=== PATIENT | male | born 1960 | race Caucasian/White ===

== ENCOUNTER 2022-03-12 11:30 | Inpatient (IN) ==
[2022-03-12] MEDS ORDERED: IOPAMIDOL 100 ML BOTTLE IV ONE (11:31)
--- NOTE | 2022-03-12 11:49 | Emergency Department Note ---
HPI General Chief complaint: Stroke Symptoms Stated complaint: stroke symptoms Time Seen by Provider: 03/12/22 11:34 Source: patient Mode of arrival: ambulatory Limitations: no limitations History of Present Illness HPI Narrative: Narrative: Presents emergency department for strokelike symptoms. He was sent over from surgery. He had surgery on his right shoulder today. Was found to be unable to move his left arm postoperatively. Last known well was 730 this morning. He is reportedly been agitated after surgery. No other complaints. Patient was given aspirin prior to arrival in the emergency department Related Data Previous Rx's Medication Instructions Recorded albuterol sulfate 90 mcg/actuation 1 inh inhalation Q4-6H PRN 08/16/21 breath activated powder inhaler shortness of breath #1 ea methylphenidate HCl 27 mg 27 mg PO QAM #30 tabs 10/31/21 tablet,extended release 24 hr tamsulosin 0.4 mg capsule 0.4 mg PO QHS #30 caps 11/22/21 hydrocodone 10 mg-acetaminophen 1 - 2 tab PO Q4HP PRN Per Pain 03/12/22 325 mg tablet Protocol #60 tabs Allergies Allergy/AdvReac Type Severity Reaction Status Date / Time No Known Drug Allergies Allergy Verified 03/12/22 06:11 Review of Systems ROS ROS Narrative: Narrative: As above, otherwise limited due to acuity. [facility] Narrative Patient History Narrative: Narrative: Medical/Surgical/Family History All Active Problems (Updated 03/12/22 @ 15:54 by Gunnar Cary MD) Fracture of clavicle (Chronic) Fracture scapula-closed (Chronic) Fracture, rib (Chronic) Superficial thrombophlebitis (Chronic) Anxiety (Chronic) Chronic stasis dermatitis of left lower extremity (Chronic) On intermediate manager drug therapy (Chronic) Urinary incontinence (Chronic) Stimulant use disorder (Chronic) Hypertension (Chronic) Attention deficit hyperactivity disorder (ADHD) (Chronic) Tobacco use disorder, continuous (Chronic) Major depressive disorder, 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) Urinary incontinence (Chronic) HTN (hypertension) (Chronic) Hematuria (Chronic) Elevated PSA (Chronic) Fecal incontinence (Chronic) Chronic hepatitis C (Chronic) Mental disorder (Chronic) Benign prostatic hyperplasia (Chronic) Shoulder joint pain (Chronic) Lumbar disc prolapse with compression radiculopathy (Chronic) Chronic low back pain (Chronic) Disorder of rotator cuff (Chronic) Acquired trigger finger (Chronic) Memory impairment (Chronic) No-show for appointment (Chronic) Generalized anxiety disorder (Chronic) Cough (Chronic) SOB (shortness of breath) (Chronic) Depressive disorder (Chronic) Other low back pain (Chronic) BPH loc w urin obs/LUTS (Acute) Erectile dysfunction (Acute) Low libido (Acute) Elevated PSA, less than 10 ng/ml (Acute) Facial rash (Acute) Cellulitis (Acute) Wheezing (Acute) Sprain of foot, left (Acute) Left shoulder strain (Acute) Acute CVA (cerebrovascular accident) (Acute) Medical History Acquired trigger finger Anxiety Attention deficit hyperactivity disorder (ADHD) Benign prostatic hyperplasia Chronic hepatitis C Onset 11/19/2013 Chronic low back pain Chronic stasis dermatitis of left lower extremity Depressive disorder Disorder of rotator cuff Elevated PSA Fecal incontinence Fracture of clavicle Fracture scapula-closed Fracture, rib Hematuria HTN (hypertension) Hypertension Lumbar disc prolapse with compression radiculopathy Major depressive disorder, recurrent severe without psychotic features Memory impairment Mental disorder On intermediate manager drug therapy Other low back pain Shoulder joint pain Stimulant use disorder Superficial thrombophlebitis Tobacco use disorder, continuous Urinary incontinence Urinary incontinence Surgical History History of open reduction and internal fixation (ORIF) procedure (10/09/16) Right shoulder History of orthopedic surgery (03/20/17) Hardware removed, right shoulder deep removing the hook, plate and 5 screws History of surgery left shoulder Family History Sister ADHD (attention deficit hyperactivity disorder) Depressive disorder Father Diabetes mellitus Brother Cancer Other Hypertension Social History Smoking Status: Current every day smoker Alcohol Intake Frequency: does not drink Substance Use: does not use Exam Narrative Narrative: Narrative: Blood pressure 155/91, pulse 104, respirations 18, temperature 97.5, O2 sat 92% on room air. General Limitations: no limitations Head Head: Present atraumatic, normocephalic and normal inspection Eye Eye: Present normal appearance, PERRL and EOMI ENT ENT: Present normal exam Neck Neck: Present normal inspection and full ROM Respiratory Respiratory: Absent respiratory distress Extremities Extremities: Present other (Right shoulder with surgical dressing in place) Neurological Neurological: Present alert, CN II-XII intact and motor sensory deficit (Patient has weakness to the left upper extremity, difficulty following commands.) Psychiatric Psychiatric: Present agitated and other (Agitated) Skin Skin: Present warm (WNL) and dry Course Vital Signs Vital signs: Vital Signs Temperature 97.5 F 03/12/22 11:36 Pulse Rate 104 H 03/12/22 11:36 Respiratory Rate 18 03/12/22 11:36 Blood Pressure 155/91 03/12/22 11:36 Pulse Oximetry (%) 92 03/12/22 11:36 Oxygen Delivery Method 03/12/22 11:36 Temperature 97.5 F 03/12/22 11:36 Pulse Rate 89 03/12/22 15:32 Respiratory Rate 12 03/12/22 15:32 Blood Pressure 130/88 03/12/22 15:32 Pulse Oximetry (%) 94 03/12/22 15:32 Oxygen Delivery Method 03/12/22 12:45 Oxygen Flow Rate (L/min) 2 03/12/22 12:45 MDM MDM Narrative Medical decision making narrative: Narrative: EKG showed sinus rhythm, no acute ischemic changes, intervals otherwise normal. CT brain as read by radiology showed no acute pathology. Spoke with Dr. Hernandez on-call telestroke neurologist. Case reviewed in detail over the phone. Neurologist recommend the patient be admitted for observation and standard stroke work-up. Spoke with on-call hospitalist. Case reviewed in detail over phone. Hospitalist requested MRI results of this reviewed as per the electronic medical record. Spoke with on-call hospitalist. Hospitalist agreed with admission. Discussed findings with patient and the family. Their questions were answered. They are agreeable to plan. Lab Data Result diagrams: 03/12/22 12:11 Labs: Lab Results 03/12/22 03/12/22 03/12/22 Range/Units 12:11 12:11 12:11 WBC 6.9 (4.5-11.0) K/mcL RBC 4.69 (4.63-6.08) M/mcL Hgb 14.3 (13.7-17.5) g/dL Hct 42.5 (40.1-51.0) % POC Hct (41-55) MCV 90.6 (80.0-100.0) fL MCH 30.5 (26.0-34.0) pg MCHC 33.6 (31.0-36.0) g/dL RDW 13.2 (11.5-14.5) % Plt Count 169 (140-440) K/mcL MPV 10.3 (8.8-12.5) fL Immature Gran % (Auto) 0.4 (0.0-0.5) % Neut % (Auto) 87.1 H (38.0-78.0) % Lymph % (Auto) 10.2 L (15.5-49.0) % [place] % (Auto) 1.9 (1.0-12.0) % Eos % (Auto) 0.3 (0.0-7.0) % Baso % (Auto) 0.1 (0.0-2.0) % Lymph # (Auto) 0.70 L (1.50-4.80) K/mcL [place] # (Auto) 0.13 (0.10-0.90) K/mcL Eos # (Auto) 0.02 (0.00-0.70) K/mcL Baso # (Auto) 0.01 (0.00-0.30) K/mcL Immature Gran # 0.03 (0.00-0.05) K/mcl Absolute Neutrophils 5.99 (1.80-8.00) K/mcL PT 13.3 (11.9-14.5) sec INR 1.0 (0.9-1.1) APTT 32.6 (20.0-37.0) sec POC Sodium (133-145) POC Potassium (3.3-5.1) POC Chloride (96-108) POC Total CO2 (22-30) POC BUN (6-20) POC Creatinine (0.6-1.2) POC Glucose (70-105) POC WB Ioniz Calcium (1.16-1.32) Ethyl Alcohol mg/dL < 10.0 mg/dL Ethyl Alcohol g/dL < 0.010 (<0.010) gm/dL 03/12/22 Range/Units 12:15 WBC (4.5-11.0) K/mcL RBC (4.63-6.08) M/mcL Hgb (13.7-17.5) g/dL Hct (40.1-51.0) % POC Hct 42.0 (41-55) MCV (80.0-100.0) fL MCH (26.0-34.0) pg MCHC (31.0-36.0) g/dL RDW (11.5-14.5) % Plt Count (140-440) K/mcL MPV (8.8-12.5) fL Immature Gran % (Auto) (0.0-0.5) % Neut % (Auto) (38.0-78.0) % Lymph % (Auto) (15.5-49.0) % [place] % (Auto) (1.0-12.0) % Eos % (Auto) (0.0-7.0) % Baso % (Auto) (0.0-2.0) % Lymph # (Auto) (1.50-4.80) K/mcL [place] # (Auto) (0.10-0.90) K/mcL Eos # (Auto) (0.00-0.70) K/mcL Baso # (Auto) (0.00-0.30) K/mcL Immature Gran # (0.00-0.05) K/mcl Absolute Neutrophils (1.80-8.00) K/mcL PT (11.9-14.5) sec INR (0.9-1.1) APTT (20.0-37.0) sec POC Sodium 141 (133-145) POC Potassium 3.5 (3.3-5.1) POC Chloride 102 (96-108) POC Total CO2 24.0 (22-30) POC BUN 16 (6-20) POC Creatinine 1.2 (0.6-1.2) POC Glucose 142 H (70-105) POC WB Ioniz Calcium 1.12 L (1.16-1.32) Ethyl Alcohol mg/dL mg/dL Ethyl Alcohol g/dL (<0.010) gm/dL Discharge Plan Patient/Caregiver Discharge Instructions Pt seen by PROSTHODONTIST/OWNER/PA only: No Clinical Impression: Acute CVA (cerebrovascular accident) Patient Disposition: Xfer As Inpt ([facility]) Follow up with: Jewell Damon ARNP [Primary Care Provider] - Prescriptions: No Action methylphenidate HCl 27 mg tablet extended release 24hr 27 mg PO QAM Qty: 30 0RF albuterol sulfate 90 mcg/actuation aerosol powdr breath activated 1 inh inhalation Q4-6H PRN (Reason: shortness of breath) Qty: 1 0RF hydrocodone-acetaminophen 10-325 mg Tablet 1 - 2 tab PO Q4HP PRN (Reason: Per Pain Protocol) Qty: 60 0RF tamsulosin 0.4 mg capsule 0.4 mg PO QHS Qty: 30 11RF
--- NOTE | 2022-03-12 12:04 | Cat Scan Report ---
History: Acute stroke symptoms TECHNIQUE: The brain was imaged without contrast in axial plane at 2.5 mm intervals. The radiation exposure was limited using dose reduction technology. FINDINGS: There is a small multicentric infarct with encephalomalacia in the right ernandez radiata, in the posterior right frontal lobe. It measures approximately 5 x 8 mm in size. It has no mass effect. No acute infarct is detected. There is no intracranial hemorrhage or cerebral edema. Mild atrophy is present. The ventricles are normal in size. There is no abnormal extra-axial fluid collection. Calvarium is asymmetrically developed. This is an anatomic variant. No skull lesion is present. The visualized sinuses are clear. IMPRESSION: Small old infarct with encephalomalacia in the right ernandez radiata Dr. Cary was called with the report Interpreted and Authenticated by: James Clemens 03/12/22
[2022-03-12 12:17] LABS: POC Calcium, Ionized 1.12 (1.16-1.32); POC Creatinine 1.2 (0.6-1.2); POC Potassium 3.5 (3.3-5.1)
--- NOTE | 2022-03-12 12:42 | Cat Scan Report ---
History: New stroke symptoms TECHNIQUE: Following injection of intravenous nonionic contrast the patient was scanned during the arterial phase from the ascending aorta to the top of the head. Sagittal, coronal and curved linear reformatted images were created. The radiation exposure was limited using dose reduction technology. FINDINGS: NECK: There are patchy alveolar infiltrates located posteriorly in the upper lobes, right worse left. This could be due to atelectasis, inflammation or aspiration. There is some air in the soft tissues around the right shoulder due to the recent shoulder surgery. The aortic arch and great vessels arising from the aorta are normal in caliber. There is a small amount of plaque along the midportion of the aorta. There is no aneurysm or dissection. Few calcified plaques are seen in the coronary arteries. The innominate and common carotid arteries are normal. Small amount of mixed plaque is present in the proximal internal carotids bilaterally. This causing approximately 33% stenosis on the left and 25% stenosis of the right. Mid and distal portions of both internal carotids are normal and there is no dissection or thrombosis. The vertebral arteries are normal and nearly symmetric. Incidentally noted is moderate disc space narrowing at C5-6 and milder narrowing at C4-5. Brain: Intracranial portions of both internal carotids and vertebral arteries are normal in caliber. [place] of [place] is normal. There is no large vessel occlusion. No aneurysm is present. 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 This is the same location where a suspected old infarct is seen on the preceding unenhanced head CT. There is no associated hemorrhage. This anomalous vein drains into the right internal cerebral vein and vein of Ricardo. No other vascular anomaly is present. IMPRESSION: Nonhemodynamically significant stenoses in the proximal internal carotids bilaterally. 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 Cayr was called with the report Interpreted and Authenticated by: James Clemens 03/12/22
[2022-03-12 13:11] LABS: Basophils # (Auto) 0.01 K/mcL (0.00-0.30); Basophils % (Auto) 0.1 % (0.0-2.0); Eosinophils # (Auto) 0.02 K/mcL (0.00-0.70); Eosinophils % (Auto) 0.3 % (0.0-7.0); Hematocrit 42.5 % (40.1-51.0); Hemoglobin 14.3 g/dL (13.7-17.5); Lymphocytes % (Auto) 10.2 % (15.5-49.0); Mean Cell Volume 90.6 fL (80.0-100.0); Mean Corpuscular HGB Conc 33.6 g/dL (31.0-36.0); Mean Platelet Volume 10.3 fL (8.8-12.5); Monocytes # (Auto) 0.13 K/mcL (0.10-0.90); Monocytes % (Auto) 1.9 % (1.0-12.0); Neutrophils % (Auto) 87.1 % (38.0-78.0); Platelet Count 169 K/mcL (140-440); RBC 4.69 M/mcL (4.63-6.08); Red Cell Distribution Width 13.2 % (11.5-14.5); WBC 6.9 K/mcL (4.5-11.0)
[2022-03-12 13:16] LABS: Alcohol, Blood < 10.0 mg/dL; Alcohol,Blood < 0.010 gm/dL (<0.010); Partial Thromboplastin Time 32.6 sec (20.0-37.0); Prothrombin Time 13.3 sec (11.9-14.5)
--- NOTE | 2022-03-12 15:27 | Magnetic Resonance Report ---
History: Stroke symptoms with left upper extremity weakness TECHNIQUE: Multiplanar imaging was performed using stroke protocol. FINDINGS: In the right side ernandez radiata lateral to the mid body of the right lateral ventricle and adjacent to the body right caudate nucleus there is a white matter lesion which measures approximately 1.2 x 1.4 cm. Centrally there are two round components of the lesion susceptibility artifact on the gradient pulse sequence of low signal on T1. These may be foci of hemosiderin suggesting staining. Along the periphery there is restricted diffusion. The aberrant vein is seen in this same location on the preceding head CT with contrast is not identified on this nonenhanced MRI. No other infarct, hemorrhage or mass are present. There is mild age-related changes with mild atrophy and few small subtle high signal lesions in the periphery of the centrum semiovale in the frontal and parietal lobes. IMPRESSION: Small infarct posteriorly in the right frontal lobe adjacent to the right lateral ventricle. This is associated with a small venous malformation and small foci of hemosiderin staining. Dr. Cary was called with the report Interpreted and Authenticated by: James Clemens 03/12/22
[2022-03-12 15:59] LABS: Amphetamine Screen,Urine Suspect positive; Barbiturate Screen,Urine None detected; Benzodiazepines Screen,Urine None detected; Cannabinoid Screen,Urine None detected; Cocaine Screen,Urine None detected; Opiate Screen,Urine None detected; Oxycodone, Urine Screen None detected; Phencyclidine Screen,Urine None detected
[2022-03-12 16:43] LABS: Appearance,Urine CLEAR (Clear); Bilirubin,Urine NEGATIVE (Negative); Color,Urine LT. YELLOW; Culture Indicated,Urine No; Glucose,Urine (UA) NEGATIVE (Negative); Ketones,Urine NEGATIVE (Negative); Leukocyte Esterase,Urine NEGATIVE /uL (Negative); Mucus,Urine FEW /hpf; Nitrate,Urine NEGATIVE (Negative); Protein,Urine NEGATIVE (Negative); Urine Blood NEGATIVE ery/mcL (Negative); Urine RBC < 1 /hpf (0-3); Urine Squamous Epithelial Cell 0 /hpf (0-4); Urine WBC 1 /hpf (0-4); Urobilinogen,Urine Normal
--- NOTE | 2022-03-12 17:16 | Internal Med History&Physical ---
HPI History of Present Illness Patient information: Note initiated : 03/12/22 at 5:12 pm Service Date, if different from initiated Date: [] Patient: Jake Tirado 61 y/o M admitted on for stroke symptoms. Chief Complaint: [] History of present illness: Mr. 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) Urinary incontinence (Chronic) HTN (hypertension) (Chronic) Hematuria (Chronic) Elevated PSA (Chronic) Fecal incontinence (Chronic) Chronic hepatitis C (Chronic) Mental disorder (Chronic) Benign prostatic hyperplasia (Chronic) Shoulder joint pain (Chronic) Lumbar disc prolapse with compression radiculopathy (Chronic) Chronic low back pain (Chronic) Disorder of rotator cuff (Chronic) Acquired trigger finger (Chronic) Memory impairment (Chronic) No-show for appointment (Chronic) Generalized anxiety disorder (Chronic) Cough (Chronic) SOB (shortness of breath) (Chronic) Depressive disorder (Chronic) Other low back pain (Chronic) BPH loc w urin obs/LUTS (Acute) Erectile dysfunction (Acute) Low libido (Acute) Elevated PSA, less than 10 ng/ml (Acute) Facial rash (Acute) Cellulitis (Acute) Wheezing (Acute) Sprain of foot, left (Acute) Left shoulder strain (Acute) Acute CVA (cerebrovascular accident) (Acute) Medical History Acquired trigger finger Anxiety Attention deficit hyperactivity disorder (ADHD) Benign prostatic hyperplasia Chronic hepatitis C Onset 11/19/2013 Chronic low back pain Chronic stasis dermatitis of left lower extremity Depressive disorder Disorder of rotator cuff Elevated PSA Fecal incontinence Fracture of clavicle Fracture scapula-closed Fracture, rib Hematuria HTN (hypertension) Hypertension Lumbar disc prolapse with compression radiculopathy Major depressive disorder, recurrent severe without psychotic features Memory impairment Mental disorder 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 Other low back pain Shoulder joint pain Stimulant use disorder Superficial thrombophlebitis Tobacco use disorder, continuous Urinary incontinence Urinary incontinence Surgical History History of open reduction and internal fixation (ORIF) procedure (10/09/16) Right shoulder History of orthopedic surgery (03/20/17) Hardware removed, right shoulder deep removing the hook, plate and 5 screws History of surgery left shoulder Family History Sister ADHD (attention deficit hyperactivity disorder) Depressive disorder Father Diabetes mellitus Brother Cancer Other Hypertension Social History adopted: No caregiver/support person: No foster care: No household members: alone housing: other details: Trailer lives independently: Yes marital status: single education level: college occupational status: unemployed and student sexually active: Yes smoking status: Current every day smoker tobacco type: cigarettes pack-years: 40 alcohol intake frequency: does not drink substance use type: does not use seatbelt use: always firearms in home: No MEDS/ALLERGIES Home Medications and Allergies Home Medications Medication Instructions Recorded Confirmed Type albuterol sulfate 90 mcg/actuation 1 inh inhalation Q4-6H PRN 08/16/21 03/12/22 Rx breath activated powder inhaler shortness of breath #1 ea methylphenidate HCl 27 mg 27 mg PO QAM #30 tabs 10/31/21 03/12/22 Rx tablet,extended release 24 hr tamsulosin 0.4 mg capsule 0.4 mg PO QHS #30 caps 11/22/21 03/12/22 Rx hydrocodone 10 mg-acetaminophen 1 - 2 tab PO Q4HP PRN Per Pain 03/12/22 03/12/22 Rx 325 mg tablet Protocol #60 tabs Allergies Allergy/AdvReac Type Severity Reaction Status Date / Time No Known Drug Allergies Allergy Verified 03/12/22 06:11 EXAM Constitutional Vitals: Temp Pulse Resp BP Pulse Ox O2 Del Method O2 Flow Rate 97.5 F 95 H 23 H 155/90 92 2 03/12/22 11:36 03/12/22 16:53 03/12/22 16:53 03/12/22 16:46 03/12/22 16:53 03/12/22 12:45 03/12/22 12:45 DATA Data Completed and Pending Labs: Labs from last 24 hours 03/12/22 03/12/22 03/12/22 14:41 14:41 12:15 WBC RBC Hgb Hct POC Hct 42.0 MCV MCH MCHC RDW Plt Count MPV Immature Gran % (Auto) Neut % (Auto) Lymph % (Auto) [place] % (Auto) Eos % (Auto) Baso % (Auto) Lymph # (Auto) [place] # (Auto) Eos # (Auto) Baso # (Auto) Immature Gran # Absolute Neutrophils PT INR APTT POC Sodium 141 POC Potassium 3.5 POC Chloride 102 POC Total CO2 24.0 POC BUN 16 POC Creatinine 1.2 POC Glucose 142 H POC WB Ioniz Calcium 1.12 L Urine Color Lt. yellow Urine Appearance Clear Urine pH 7.0 Ur Specific [place] 1.010 Urine Protein Negative Urine Glucose (UA) Negative Urine Ketones Negative Urine Occult Blood Negative Urine Nitrate Negative Urine Bilirubin Negative Urine Urobilinogen Normal Ur Leukocyte Esterase Negative Urine RBC < 1 Urine WBC 1 Ur Squamous Epith Cells 0 Urine Bacteria None Urine Mucus Few A Ur Culture Indicated? No Urine Opiates Screen None detected Ur Opiates Confirm TNP Ur Oxycodone Screen None detected U Oxycod/Oxymor Confirm TNP Urine Methadone Screen None detected Ur Methadone Confirm TNP Ur Barbiturates Screen None detected Ur Barbiturate Confirm TNP Ur Phencyclidine Scrn None detected Urine PCP Confirm TNP Ur Amphetamines Screen Suspect positive A U Amphetamines Confirm Pending U Benzodiazepines Scrn None detected Ur Benzodiazepine, Qnt TNP Urine Cocaine Screen None detected Urine Cocaine Confirm TNP U Cannabinoids Confirm TNP U Marijuana (THC) Screen None detected Ethyl Alcohol mg/dL Ethyl Alcohol g/dL 03/12/22 03/12/22 03/12/22 12:11 12:11 12:11 WBC 6.9 RBC 4.69 Hgb 14.3 Hct 42.5 POC Hct MCV 90.6 MCH 30.5 MCHC 33.6 RDW 13.2 Plt Count 169 MPV 10.3 Immature Gran % (Auto) 0.4 Neut % (Auto) 87.1 H Lymph % (Auto) 10.2 L [place] % (Auto) 1.9 Eos % (Auto) 0.3 Baso % (Auto) 0.1 Lymph # (Auto) 0.70 L [place] # (Auto) 0.13 Eos # (Auto) 0.02 Baso # (Auto) 0.01 Immature Gran # 0.03 Absolute Neutrophils 5.99 PT 13.3 INR 1.0 APTT 32.6 POC Sodium POC Potassium POC Chloride POC Total CO2 POC BUN POC Creatinine POC Glucose POC WB Ioniz Calcium Urine Color Urine Appearance Urine pH Ur Specific [place] Urine Protein Urine Glucose (UA) Urine Ketones Urine Occult Blood Urine Nitrate Urine Bilirubin Urine Urobilinogen Ur Leukocyte Esterase Urine RBC Urine WBC Ur Squamous Epith Cells Urine Bacteria Urine Mucus Ur Culture Indicated? Urine Opiates Screen Ur Opiates Confirm Ur Oxycodone Screen U Oxycod/Oxymor Confirm Urine Methadone Screen Ur Methadone Confirm Ur Barbiturates Screen Ur Barbiturate Confirm Ur Phencyclidine Scrn Urine PCP Confirm Ur Amphetamines Screen U Amphetamines Confirm U Benzodiazepines Scrn Ur Benzodiazepine, Qnt Urine Cocaine Screen Urine Cocaine Confirm U Cannabinoids Confirm U Marijuana (THC) Screen Ethyl Alcohol mg/dL < 10.0 Ethyl Alcohol g/dL < 0.010 A/P Narrative A/P Narrative: Assessment: 61-year-old male with history of hypertension, prior stroke, attention deficit disorder, right shoulder SLAP lesion with impingement, acromial clavicular joint arthrosis and subluxation, biceps tendinitis and rotator cuff tear who underwent corrective shoulder surgery on 03/12/2022 that was unfortunately complicated by an acute intraoperative right posterior frontal lobe ischemic stroke. The cause of the stroke is unknown. #Acute right posterior frontal lobe ischemic stroke #Left upper extremity weakness #Bilateral lower extremity edema #Essential hypertension, untreated #Attention deficit disorder on methylphenidate Plan -Admit to PCU for post stroke work-up and close monitoring. -Will discuss with telestroke neurology regarding timing for antiplatelet therapy given the venous malformation and small foci of hemosiderin staining seen in the stroke area. -Start atorvastatin 40 mg daily. -Transthoracic echocardiogram. -campus monitor. -Check lipid panel and hemoglobin A1c. 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 -Permissive blood pressure for now. -Stat noncontrast CT head for any neuro changes. -Lasix 40 mg IV x2, reassess tomorrow. -Follow renal function and electrolytes. -Home medication reconciliation, continue important meds. -Dysphagia diet until seen by speech therapy. -PT, OT, speech therapy. -DVT prophylaxis: Lovenox -Disposition: Will depend on therapy recommendations, possibly acute inpatient rehab for post stroke therapies. Time Spent With Patient Time: Total time spent is greater than 50% in coordination of care (as documented) at patient's floor/unit and/or counseling patient: QUALITY Stroke Symptom Onset Unknown: No
[2022-03-12] MEDS ORDERED: ONDANSETRON 4 MG/2 ML VIAL IV PRN (18:03)
[2022-03-12] MEDS ORDERED: SENNOSIDES 1 TABLET PO PRN (18:03)
[2022-03-12] MEDS ORDERED: LACTULOSE 20 GM/30 ML ORAL.SOL PO PRN (18:03)
[2022-03-12] MEDS: HYDROmorphone 0.5 MG/0.5 ML SYRINGE IV PRN (18:49)
[2022-03-12] MEDS: FUROSEMIDE 40 MG/4 ML VIAL IV SCH (18:49)
--- NOTE | 2022-03-12 20:25 | EKG ---
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
[2022-03-12] MEDS ORDERED: NICOTINE POLACRILEX 2 MG GUM CHEW/PARK PRN (20:31)
[2022-03-12] MEDS: ATORVASTATIN 40 MG TABLET PO SCH (20:45)
[2022-03-12] MEDS: TAMSULOSIN 0.4 MG CAPSULE PO SCH (21:07)
[2022-03-12] MEDS: HYDROcodone/APAP 5/325MG TABLET PO PRN (21:07)
[2022-03-12] MEDS: DOCUSATE SODIUM 100 MG CAPSULE PO SCH (21:09)
[2022-03-12] MEDS: NICOTINE 14 MG PATCH TOPICAL SCH (21:09)
[2022-03-12] MEDS: DIAZEPAM 2 MG TABLET PO PRN (21:13)
[2022-03-12] MEDS: 0.9 % SODIUM CHLORIDE 10 ML SYRINGE IV SCH (22:02)
[2022-03-13] MEDS: HYDROmorphone 0.5 MG/0.5 ML SYRINGE IV PRN (05:55)
[2022-03-13] MEDS: 0.9 % SODIUM CHLORIDE 10 ML SYRINGE IV SCH ×4 (05:56→20:03)
[2022-03-13 07:09] LABS: Estimated Average Glucose(eAG) 126 mg/dL
[2022-03-13 07:38] LABS: ALT/SGPT 27 U/L (<40); AST/SGOT 29 U/L (<40); Albumin 3.6 gm/dL (3.2-5.2); Albumin/Globulin Ratio 1.3 (1.0-2.3); Alkaline Phosphatase 74 U/L (39-117); Bilirubin,Direct < 0.2 mg/dL (0-0.3); Bilirubin,Total 0.2 mg/dL (0.1-1.0); Blood Urea Nitrogen 20 mg/dL (6-20); Calcium 8.8 mg/dL (8.6-10.4); Carbon Dioxide 24 mmol/L (22-30); Chloride 103 mmol/L (96-108); Globulin 2.8 gm/dL (2.2-3.7); Glomerular Filtration Rate 73; Glucose 134 mg/dL (70-105); HDL Cholesterol 33 mg/dL (>40); LDL Cholesterol,Calculated 98 mg/dL (<100); Lactate Dehydrogenase 193 U/L (135-225); Non-HDL Cholesterol 112 mg/dL (<130); Phosphorous 3.9 mg/dL (2.5-4.5); Triglycerides 71 mg/dL (<150); Uric Acid 7.3 mg/dL (2.5-8.0)
[2022-03-13] MEDS: FUROSEMIDE 40 MG/4 ML VIAL IV SCH (08:25)
[2022-03-13] MEDS: DOCUSATE SODIUM 100 MG CAPSULE PO SCH ×2 (08:57→20:03)
[2022-03-13] MEDS: HYDROcodone/APAP 5/325MG TABLET PO PRN ×3 (08:59→19:32)
[2022-03-13] MEDS: ASPIRIN 81 MG TAB.CHEW CHEWED SCH (08:59)
[2022-03-13] MEDS: ENOXAPARIN 40 MG/0.4 ML SYRINGE SQ SCH (08:59)
[2022-03-13] MEDS: ATORVASTATIN 40 MG TABLET PO SCH (09:00)
--- NOTE | 2022-03-13 10:08 | Cat Scan Report ---
History: Follow-up right hemispheric stroke TECHNIQUE: The brain was imaged without contrast in axial plane at 2.5 mm intervals. Sagittal and coronal reformats were created. The radiation exposure was limited using dose reduction technology. FINDINGS: There is a stable 9 x 12 mm low-attenuation lesion in the right ernandez radiata, located posteriorly in the right frontal lobe. This corresponds with the infarct seen on yesterday's brain MRI. It has not enlarged and there is no associated hemorrhage. No new infarct has developed since the prior exam. There is stable mild age-related degenerative changes with mild cerebral atrophy. No abnormal extra-axial fluid collection is present. The ventricles are normal in size. IMPRESSION: Stable small infarct in the right ernandez radiata Interpreted and Authenticated by: James Clemens 03/13/22
[2022-03-13] MEDS: NICOTINE 14 MG PATCH TOPICAL SCH (11:21)
[2022-03-13] MEDS: DIAZEPAM 2 MG TABLET PO PRN (12:28)
--- NOTE | 2022-03-13 13:10 | Internal Med Progress Note ---
SUBJECTIVE Subjective Patient information: Note initiated : 03/13/22 at 1:06 pm Service Date, if different from initiated Date: [] Patient: Jake Tirado 61 y/o M admitted on 03/12/22 for stroke symptoms- Ischemic Stroke. Chief Complaint: [] Interval history: Jake Tirado is a 61-year-old male with history of hypertension, attention deficit disorder, right shoulder SLAP lesion with impingement, acromial clavicular joint arthrosis and subluxation, biceps tendinitis and rotator cuff tear who underwent corrective shoulder surgery on 03/12/2022 that was unfortunately complicated by an acute intraoperative right posterior frontal lobe ischemic stroke. MRI brain showed a small infarct posteriorly in the right frontal lobe adjacent to the right lateral ventricle. CTA head and neck showed nonhemodynamically significant stenosis in the proximal internal carotid arteries bilaterally, normal intracranial arterial circulation, a venous malformation adjacent to the body of the right caudate nucleus and right ernandez radiata. The patient was started on aspirin, stroke neurology recommended repeating a noncontrast CT head the next day given a small amount of possible hemosiderin staining on the MRI brain and venous malformation. 03/13 No significant events overnight, NIH stroke scale score 7. Repeat noncontrast CT head showed a stable small infarct in the right ernandez radiata, no associated hemorrhage. Hemoglobin A1c was 6.0, LDL was 98, transthoracic echocardiogram did not show a source of cardioembolic stroke. 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 We will continue aspirin and statin, per stroke neurology, the patient is not a candidate for the addition of Plavix given the NIH score of 7. Patient continues to have significant left upper extremity weakness and possible mild neglect. PT, OT and speech therapy will evaluate the patient today. Anticipate the patient would benefit from high intensity rehab for post stroke cares. Physical exam Head: Atraumatic, normal inspection. Eyes: normal appearance, no scleral icterus. Neck: full ROM Respiratory: no respiratory distress. Cardiovascular: normal rate and rhythm, S1, S2. GI/Abdominal: soft, nontender, no guarding. Extremities: full range of motion, nontender. Neurological: Mild right facial droop, left upper extremity weakness, intact sensation. Psychiatric: normal mood. Skin: warm, normal color Constitutional Vitals: Vital Signs Temp Pulse Resp BP Pulse Ox O2 Del Method O2 Flow Rate 98.8 F 85 16 170/105 94 0 03/13/22 12:01 03/13/22 12:01 03/13/22 12:01 03/13/22 12:01 03/13/22 12:01 03/13/22 12:01 03/13/22 12:01 Period Temp Pulse Resp BP Sys/Viera Pulse Ox O2 Del Method O2 Flow Rate Last 24 Hr 97.1 F-98.8 F 64-109 9-23 103-170/67-105 91-98 Nasal Cannula- Room Air 0-2.5 Intake and Output 03/12/22 03/13/22 03/13/22 21:59 05:59 13:59 Intake Total 240 400 Output Total 450 750 Balance -450 240 -350 Weight 100.561 kg Intake & Output: Intake & Output 03/12/22 03/13/22 03/13/22 21:59 05:59 13:59 Intake Total 240 400 Output Total 450 750 Balance -450 240 -350 Weight 100.561 kg Intake: Oral 240 400 Output: Void Amount 450 750 Other: Meal Dinner Breakfast Percent of Meal Consumed 100% 75% Feeding Ability Total Assistance Total Assistance Urine Appearance Clear Clear Urine Color Yellow Yellow # Bowel Movements 0 OBJ DATA Labs CBC & Chem 7: 03/12/22 12:11 03/13/22 05:18 Labs: Abnormal Lab Results 03/13/22 03/12/22 03/12/22 05:18 14:41 14:41 Neut % (Auto) Lymph % (Auto) Lymph # (Auto) Glucose 134 H POC Glucose POC WB Ioniz Calcium Magnesium 2.6 H HDL Cholesterol 33 L Urine Mucus Few A Ur Amphetamines Screen Suspect positive A 03/12/22 03/12/22 12:15 12:11 Neut % (Auto) 87.1 H Lymph % (Auto) 10.2 L Lymph # (Auto) 0.70 L Glucose POC Glucose 142 H POC WB Ioniz Calcium 1.12 L Magnesium HDL Cholesterol Urine Mucus Ur Amphetamines Screen Meds: Medications Acetaminophen (Acetaminophen 325 Mg Tablet) 650 mg PO Q6HP PRN; Protocol PRN Reason: Per Pain Protocol/Fever > 101 Hydrocodone Bitart/Acetaminophen (Hydrocodone/Apap 5/325mg Tablet) 1 tab PO Q4HP PRN; Protocol PRN Reason: Per Pain Protocol Last Admin: 03/13/22 08:59 Dose: 1 tab Aspirin (Aspirin 81 Mg Tab.Chew) 81 mg CHEWED DAILY [facility] Last Admin: 03/13/22 08:59 Dose: 81 mg Atorvastatin Calcium (Atorvastatin 40 Mg Tablet) 40 mg PO DAILY [facility] Last Admin: 03/13/22 09:00 Dose: 40 mg Diazepam (Diazepam 2 Mg Tablet) 2 mg PO TIDP PRN PRN Reason: anxiety Last Admin: 03/13/22 12:28 Dose: 2 mg Docusate Sodium (Docusate Sodium 100 Mg Capsule) 100 mg PO BID [facility] Last Admin: 03/13/22 08:57 Dose: Not Given Enoxaparin Sodium (Enoxaparin 40 Mg/0.4 Ml Syringe) 40 mg SQ DAILY [facility] Last Admin: 03/13/22 08:59 Dose: 40 mg Hydromorphone HCl (Hydromorphone 0.5 Mg/0.5 Ml Syringe) 0.5 mg IV Q2HP PRN; Protocol PRN Reason: Per Pain Protocol Last Admin: 03/13/22 05:55 Dose: 0.5 mg Hydroxyzine HCl (Hydroxyzine 25 Mg Tablet) 25 mg PO TIDP PRN PRN Reason: Allergic Symptoms Lactulose (Lactulose 20 Gm/30 Ml Oral.Luciana) 10 gm PO DAILYP PRN PRN Reason: Constipation Nicotine (Nicotine 14 Mg Patch) 14 mg TOPICAL DAILY@1000 [facility] Last Admin: 03/13/22 11:21 Dose: 14 mg Nicotine Polacrilex (Nicotine Polacrilex 2 Mg Gum) 2 mg CHEW/PARK Q4HP PRN PRN Reason: Anxiety Ondansetron HCl (Ondansetron 4 Mg/2 Ml Vial) 4 mg IV Q4HP PRN; Protocol PRN Reason: Nausea And Vomiting Senna (Sennosides 1 Tablet) 2 tab PO HSP PRN PRN Reason: Constipation Sodium Chloride (0.9 % Sodium Chloride 10 Ml Syringe) 10 ml IV Q8 [facility] Last Admin: 03/13/22 08:26 Dose: 10 ml Tamsulosin HCl (Tamsulosin 0.4 Mg Capsule) 0.4 mg PO QHS [facility] Last Admin: 03/12/22 21:07 Dose: 0.4 mg A/P Narrative A/P Narrative: Assessment: 61-year-old male with history of untreated hypertension, attention deficit disorder, right shoulder SLAP lesion with impingement, acromial clavicular joint arthrosis and subluxation, biceps tendinitis and rotator cuff tear who underwent corrective shoulder surgery on 03/12/2022 that was unfortunately complicated by an acute intraoperative right posterior frontal lobe ischemic stroke. #Acute right posterior frontal lobe ischemic stroke #Left upper extremity weakness secondary to stroke #Improved bilateral lower extremity edema #Essential hypertension, untreated #Attention deficit disorder on methylphenidate #Status post left shoulder surgery 03/12/2022 Plan -Aspirin 81 mg and atorvastatin 40 mg daily. -Transthoracic echocardiogram did not reveal a source of cardioembolic stroke. 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 -Permissive blood pressure for now, as needed IV labetalol and IV hydralazine for extremely elevated blood pressure. -Plan to start oral antihypertensives 48 hours after stroke onset. -Follow renal function and electrolytes. -Continue home Flomax. -As needed Valium and hydroxyzine for anxiety. -Analgesics as needed. -Regular diet. -PT, OT, speech therapy. -Orthopedic surgery following for postoperative cares. -DVT prophylaxis: Lovenox -Disposition: Probably high intensity rehab pending insurance authorization and placement. Consider outpatient cardiac cath lab radiology technologist if no source of stroke identified during the hospital stay. Time Spent With Patient Time: Total time spent is greater than 50% in coordination of care (as documented) at patient's floor/unit and/or counseling patient: QUALITY Stroke Onset of Symptoms Date: 03/12/22 Onset of Symptoms Time: 07:30 Symptom Onset Unknown: No
[2022-03-13] MEDS ORDERED: hydrALAZINE 20 MG/ML VIAL IV PRN (13:45)
[2022-03-13] MEDS ORDERED: LABETALOL 5 MG/ML ML IV PRN (13:45)
[2022-03-13] MEDS: ACETAMINOPHEN 325 MG TABLET PO PRN (19:32)
[2022-03-13] MEDS: TAMSULOSIN 0.4 MG CAPSULE PO SCH (20:03)
[2022-03-14] MEDS: HYDROcodone/APAP 5/325MG TABLET PO PRN ×4 (02:39→20:45)
[2022-03-14] MEDS: 0.9 % SODIUM CHLORIDE 10 ML SYRINGE IV SCH ×3 (06:34→20:46)
[2022-03-14] MEDS: ACETAMINOPHEN 325 MG TABLET PO PRN (06:36)
[2022-03-14] MEDS: DIAZEPAM 2 MG TABLET PO PRN ×3 (07:23→20:46)
[2022-03-14 07:27] LABS: ALT/SGPT 21 U/L (<40); AST/SGOT 29 U/L (<40); Albumin 3.4 gm/dL (3.2-5.2); Albumin/Globulin Ratio 1.3 (1.0-2.3); Alkaline Phosphatase 70 U/L (39-117); Bilirubin,Direct < 0.2 mg/dL (0-0.3); Bilirubin,Total 0.3 mg/dL (0.1-1.0); Blood Urea Nitrogen 17 mg/dL (6-20); Calcium 8.5 mg/dL (8.6-10.4); Carbon Dioxide 24 mmol/L (22-30); Chloride 105 mmol/L (96-108); Globulin 2.7 gm/dL (2.2-3.7); Glomerular Filtration Rate 93; Glucose 112 mg/dL (70-105); Lactate Dehydrogenase 231 U/L (135-225); Phosphorous 2.5 mg/dL (2.5-4.5); Triglycerides 69 mg/dL (<150); Uric Acid 5.9 mg/dL (2.5-8.0)
[2022-03-14] MEDS: DOCUSATE SODIUM 100 MG CAPSULE PO SCH ×2 (08:32→20:46)
[2022-03-14] MEDS: ASPIRIN 81 MG TAB.CHEW CHEWED SCH (08:32)
[2022-03-14] MEDS: ENOXAPARIN 40 MG/0.4 ML SYRINGE SQ SCH (08:32)
[2022-03-14] MEDS: ATORVASTATIN 40 MG TABLET PO SCH (08:32)
--- NOTE | 2022-03-14 08:40 | XRay Report ---
HISTORY: Productive cough FINDINGS: Lungs are clear and well expanded. There is no evidence of pneumonia, mass or COPD. The heart size, mediastinum and darien are normal. Postsurgical changes are again seen in the right clavicle. There has been no change since the prior x-ray done on 08/16/21. IMPRESSION: Normal exam Interpreted and Authenticated by: James Clemens 03/14/22
[2022-03-14] MEDS ORDERED: POTASSIUM CHLORIDE 20 MEQ TABLET PO ONE (08:44)
[2022-03-14] MEDS ORDERED: LISINOPRIL 5 MG TABLET PO SCH (09:00)
[2022-03-14] MEDS ORDERED: amLODIPine 5 MG TABLET PO SCH (09:00)
[2022-03-14] MEDS: NICOTINE 14 MG PATCH TOPICAL SCH (09:21)
[2022-03-14] MEDS: hydrOXYzine 25 MG TABLET PO PRN ×2 (11:09→21:43)
--- NOTE | 2022-03-14 12:57 | Internal Med Progress Note ---
SUBJECTIVE Subjective Patient information: Note initiated : 03/14/22 at 12:56 pm Service Date, if different from initiated Date: [] Patient: Jake Tirado 61 y/o M admitted on 03/12/22 for stroke symptoms- Ischemic Stroke. Chief Complaint: [] Interval history: Jake Tirado is a 61-year-old male with history of hypertension, attention deficit disorder, right shoulder SLAP lesion with impingement, acromial clavicular joint arthrosis and subluxation, biceps tendinitis and rotator cuff tear who underwent corrective shoulder surgery on 03/12/2022 that was unfortunately complicated by an acute intraoperative right posterior frontal lobe ischemic stroke. MRI brain showed a small infarct posteriorly in the right frontal lobe adjacent to the right lateral ventricle. CTA head and neck showed nonhemodynamically significant stenosis in the proximal internal carotid arteries bilaterally, normal intracranial arterial circulation, a venous malformation adjacent to the body of the right caudate nucleus and right ernandez radiata. The patient was started on aspirin, stroke neurology recommended repeating a noncontrast CT head the next day given a small amount of possible hemosiderin staining on the MRI brain and venous malformation. 03/13 No significant events overnight, NIH stroke scale score 7. Repeat noncontrast CT head showed a stable small infarct in the right ernandez radiata, no associated hemorrhage. Hemoglobin A1c was 6.0, LDL was 98, transthoracic echocardiogram did not show a source of cardioembolic stroke. nurse monitoring shows sinus rhythm so far. We will continue aspirin and statin, per stroke neurology, the patient is not a candidate for the addition of Plavix given the NIH score of 7. Patient continues to have significant left upper extremity weakness and possible mild neglect. PT, OT and speech therapy will evaluate the patient today. Anticipate the patient would benefit from high intensity rehab for post stroke cares. 03/14 Patient had some coughing overnight, chest x-ray this morning was normal. Blood pressure elevated, will begin antihypertensives now that the patient is 48 hours post stroke. Started lisinopril and Norvasc, titrate to effect. Patient also has bilateral pitting edema in his lower extremities, will give a couple doses of Lasix 40 mg IV and follow volume status. Telemetry reviewed, no atrial fibrillation or atrial flutter since admission. Case management working on discharge to high intensity rehab. Physical exam Head: Atraumatic, normal inspection. Eyes: normal appearance, no scleral icterus. Neck: full ROM Respiratory: no respiratory distress. Cardiovascular: normal rate and rhythm, S1, S2. GI/Abdominal: soft, nontender, no guarding. Extremities: Bilateral lower extremity pitting edema, right shoulder incision covered by clean bandage. Neurological: Mild right facial droop, left upper extremity weakness, intact sensation. Psychiatric: normal mood. Skin: warm, normal color Constitutional Vitals: Vital Signs Temp Pulse Resp BP Pulse Ox O2 Del Method O2 Flow Rate 98.1 F 90 16 179/108 97 0 03/14/22 08:01 03/14/22 10:01 03/14/22 10:01 03/14/22 10:01 03/14/22 10:01 03/14/22 02:00 03/13/22 12:01 Period Temp Pulse Resp BP Sys/Viera Pulse Ox O2 Del Method O2 Flow Rate Last 24 Hr 97.6 F-98.7 F 63-90 12-23 133-199/69-117 92-98 Room Air-Room Air Intake and Output 03/13/22 03/14/22 03/14/22 21:59 05:59 13:59 Intake Total 760 400 Output Total 600 1250 601 Balance 160 -850 -601 Weight 100.414 kg Intake & Output: Intake & Output 03/13/22 03/14/22 03/14/22 21:59 05:59 13:59 Intake Total 760 400 Output Total 600 1250 601 Balance 160 -850 -601 Weight 100.414 kg Intake: Oral 760 400 Output: Void Amount 600 1250 600 # of times incontinent of urine 1 Other: Meal Dinner Percent of Meal Consumed 100% Feeding Ability Assist with Tray Set Up Urine Appearance Clear Clear Clear Urine Color Dark Yellow Dark Yellow Yellow Urine Odor Normal OBJ DATA Labs CBC & Chem 7: 03/12/22 12:11 03/14/22 05:20 Labs: Abnormal Lab Results 03/14/22 03/13/22 03/12/22 05:20 05:18 14:41 Neut % (Auto) Lymph % (Auto) Lymph # (Auto) Glucose 112 H 134 H POC Glucose Calcium 8.5 L POC WB Ioniz Calcium Magnesium 2.6 H Lactate Dehydrogenase 231 H HDL Cholesterol 33 L Urine Mucus Few A Ur Amphetamines Screen 03/12/22 03/12/22 03/12/22 14:41 12:15 12:11 Neut % (Auto) 87.1 H Lymph % (Auto) 10.2 L Lymph # (Auto) 0.70 L Glucose POC Glucose 142 H Calcium POC WB Ioniz Calcium 1.12 L Magnesium Lactate Dehydrogenase HDL Cholesterol Urine Mucus Ur Amphetamines Screen Suspect positive A Meds: Medications Acetaminophen (Acetaminophen 325 Mg Tablet) 650 mg PO Q6HP PRN; Protocol PRN Reason: Per Pain Protocol/Fever > 101 Last Admin: 03/14/22 06:36 Dose: 650 mg Hydrocodone Bitart/Acetaminophen (Hydrocodone/Apap 5/325mg Tablet) 1 tab PO Q4HP PRN; Protocol PRN Reason: Per Pain Protocol Last Admin: 03/14/22 07:23 Dose: 1 tab Aspirin (Aspirin 81 Mg Tab.Chew) 81 mg CHEWED DAILY [facility] Last Admin: 03/14/22 08:32 Dose: 81 mg Atorvastatin Calcium (Atorvastatin 40 Mg Tablet) 40 mg PO DAILY [facility] [place] Last Admin: 03/14/22 08:32 Dose: 40 mg Diazepam (Diazepam 2 Mg Tablet) 2 mg PO TIDP PRN PRN Reason: anxiety Last Admin: 03/14/22 07:23 Dose: 2 mg Docusate Sodium (Docusate Sodium 100 Mg Capsule) 100 mg PO BID [facility] [place] Last Admin: 03/14/22 08:32 Dose: 100 mg Enoxaparin Sodium (Enoxaparin 40 Mg/0.4 Ml Syringe) 40 mg SQ DAILY [facility] [place] Last Admin: 03/14/22 08:32 Dose: 40 mg Furosemide (Furosemide 40 Mg/4 Ml Vial) 40 mg IV BIDD [facility] Stop: 03/15/22 08:01 Hydralazine HCl (Hydralazine 20 Mg/Ml Vial) 20 mg IV Q4-6HP PRN PRN Reason: Hypertension Hydromorphone HCl (Hydromorphone 0.5 Mg/0.5 Ml Syringe) 0.5 mg IV Q2HP PRN; Protocol PRN Reason: Per Pain Protocol Last Admin: 03/13/22 05:55 Dose: 0.5 mg Hydroxyzine HCl (Hydroxyzine 25 Mg Tablet) 25 mg PO TIDP PRN PRN Reason: Allergic Symptoms Last Admin: 03/14/22 11:09 Dose: 25 mg Labetalol HCl (Labetalol 5 Mg/Ml Ml) 10 mg IV Q10M PRN PRN Reason: Hypertension Lactulose (Lactulose 20 Gm/30 Ml Oral.Luciana) 10 gm PO DAILYP PRN PRN Reason: Constipation Lisinopril (Lisinopril 5 Mg Tablet) 5 mg PO DAILY [facility] Last Admin: 03/14/22 08:32 Dose: 5 mg Nicotine (Nicotine 14 Mg Patch) 14 mg TOPICAL DAILY@1000 [facility] Last Admin: 03/14/22 09:21 Dose: 14 mg Nicotine Polacrilex (Nicotine Polacrilex 2 Mg Gum) 2 mg CHEW/PARK Q4HP PRN PRN Reason: Anxiety Ondansetron HCl (Ondansetron 4 Mg/2 Ml Vial) 4 mg IV Q4HP PRN; Protocol PRN Reason: Nausea And Vomiting Senna (Sennosides 1 Tablet) 2 tab PO HSP PRN PRN Reason: Constipation Sodium Chloride (0.9 % Sodium Chloride 10 Ml Syringe) 10 ml IV Q8 [facility] Last Admin: 03/14/22 06:34 Dose: 10 ml Tamsulosin HCl (Tamsulosin 0.4 Mg Capsule) 0.4 mg PO QHS [facility] Last Admin: 03/13/22 20:03 Dose: 0.4 mg A/P Narrative A/P Narrative: Assessment: 61-year-old male with history of untreated hypertension, attention deficit disorder, right shoulder SLAP lesion with impingement, acromial clavicul ar joint arthrosis and subluxation, biceps tendinitis and rotator cuff tear who underwent corrective shoulder surgery on 03/12/2022 that was unfortunately complicated by an acute intraoperative right posterior frontal lobe ischemic stroke. #Acute right posterior frontal lobe ischemic stroke #Left upper extremity weakness secondary to stroke #Bilateral lower extremity edema #Essential hypertension, untreated #Attention deficit disorder on methylphenidate #Status post left shoulder surgery 03/12/2022 Plan -Aspirin 81 mg and atorvastatin 40 mg daily. -Transthoracic echocardiogram did not reveal a source of cardioembolic stroke. -nurse monitoring. -Neurochecks and NIH -Start lisinopril and Norvasc, titrate to effect. -Lasix 40 mg IV twice daily x2. -Follow renal function and electrolytes. -Continue home Flomax. -As needed Valium and hydroxyzine for anxiety. -Analgesics as needed. -Regular diet. -PT, OT, speech therapy. -DVT prophylaxis: Lovenox -Disposition: Probably high intensity rehab pending insurance authorization and placement. Consider outpatient telemetry monitor if no source of stroke identified during the hospital stay. Consider antihypertensive regimen with a thiazide diuretic given lower extremity edema. Time Spent With Patient Time: Total time spent is greater than 50% in coordination of care (as documented) at patient's floor/unit and/or counseling patient: QUALITY Stroke Onset of Symptoms Date: 03/12/22 Onset of Symptoms Time: 07:30 Symptom Onset Unknown: No
[2022-03-14] MEDS: FUROSEMIDE 40 MG/4 ML VIAL IV SCH (16:13)
[2022-03-14] MEDS: TAMSULOSIN 0.4 MG CAPSULE PO SCH (20:46)
[2022-03-14] MEDS: HYDROmorphone 0.5 MG/0.5 ML SYRINGE IV PRN (21:43)
[2022-03-15] MEDS: HYDROcodone/APAP 5/325MG TABLET PO PRN ×2 (01:17→08:30)
[2022-03-15] MEDS: HYDROmorphone 0.5 MG/0.5 ML SYRINGE IV PRN ×2 (03:11→10:45)
[2022-03-15] MEDS: 0.9 % SODIUM CHLORIDE 10 ML SYRINGE IV SCH ×2 (05:26→12:55)
[2022-03-15 07:26] LABS: ALT/SGPT 20 U/L (<40); AST/SGOT 26 U/L (<40); Albumin 3.7 gm/dL (3.2-5.2); Albumin/Globulin Ratio 1.4 (1.0-2.3); Alkaline Phosphatase 77 U/L (39-117); Bilirubin,Direct < 0.2 mg/dL (0-0.3); Bilirubin,Total 0.3 mg/dL (0.1-1.0); Blood Urea Nitrogen 12 mg/dL (6-20); Calcium 9.2 mg/dL (8.6-10.4); Carbon Dioxide 26 mmol/L (22-30); Chloride 103 mmol/L (96-108); Globulin 2.7 gm/dL (2.2-3.7); Glomerular Filtration Rate 93; Glucose 104 mg/dL (70-105); Lactate Dehydrogenase 216 U/L (135-225); Phosphorous 3.6 mg/dL (2.5-4.5); Triglycerides 128 mg/dL (<150); Uric Acid 5.5 mg/dL (2.5-8.0)
[2022-03-15] MEDS: FUROSEMIDE 40 MG/4 ML VIAL IV SCH (08:30)
[2022-03-15] MEDS: ASPIRIN 81 MG TAB.CHEW CHEWED SCH (08:30)
[2022-03-15] MEDS: DOCUSATE SODIUM 100 MG CAPSULE PO SCH (08:30)
[2022-03-15] MEDS: ATORVASTATIN 40 MG TABLET PO SCH (08:30)
[2022-03-15] MEDS: ENOXAPARIN 40 MG/0.4 ML SYRINGE SQ SCH (08:31)
[2022-03-15] MEDS: NICOTINE 14 MG PATCH TOPICAL SCH (08:31)
[2022-03-15] MEDS ORDERED: amLODIPine 10 MG TABLET PO SCH (09:00)
[2022-03-15] MEDS ORDERED: LISINOPRIL 20 MG TABLET PO SCH (09:00)
[2022-03-15] MEDS: DIAZEPAM 2 MG TABLET PO PRN (09:27)
[2022-03-15] MEDS ORDERED: DIAZEPAM 2 MG TABLET PO ONE (10:37)
[2022-03-15] MEDS ORDERED: DIAZEPAM 2 MG TABLET PO PRN (10:38)
[2022-03-15] MEDS ORDERED: NICOTINE 21 MG PATCH TOPICAL SCH (10:40)
[2022-03-15] MEDS ORDERED: DIAZEPAM 5 MG TABLET PO PRN (10:59)
[2022-03-15] MEDS: hydrOXYzine 25 MG TABLET PO PRN (12:54)
--- NOTE | 2022-03-15 14:18 | Discharge Summary ---
Discharge Provider Provider IMPORTANT FOLLOW-UP INFORMATION FOR PCP: Patient information: Note initiated : 03/15/22 at 2:16 pm Service Date, if different from initiated Date: [] Patient: Jake Tirado 61 y/o M admitted on 03/12/22 for stroke symptoms- Ischemic Stroke. Chief Complaint: [] Date of admission: 03/12/22 18:00 Primary care physician: Jewell Damon Consults: 03/12/22 13:04 Consult to Physician [CONS] Stat Comment: Consulting Provider: Omega Marques Reason For Exam: Physician to Consult COURSE Hospital Course Hospital course: Jake Tirado is a 61-year-old male with history of hypertension, attention deficit disorder, right shoulder SLAP lesion with impingement, acromial clavicular joint arthrosis and subluxation, biceps tendinitis and rotator cuff tear who underwent corrective shoulder surgery on 03/12/2022 that was unfortunately complicated by an acute intraoperative right posterior frontal lobe ischemic stroke. MRI brain showed a small infarct posteriorly in the right frontal lobe adjacent to the right lateral ventricle. CTA head and neck showed nonhemodynamically significant stenosis in the proximal internal carotid arteries bilaterally, normal intracranial arterial circulation, a venous malformation adjacent to the body of the right caudate nucleus and right ernandez radiata. The patient was started on aspirin, stroke neurology recommended repeating a noncontrast CT head the next day given a small amount of possible hemosiderin staining on the MRI brain and venous malformation. 03/13 No significant events overnight, NIH stroke scale score 7. Repeat noncontrast CT head showed a stable small infarct in the right ernandez radiata, no associated hemorrhage. Hemoglobin A1c was 6.0, LDL was 98, transthoracic echocardiogram did not show a source of cardioembolic stroke. laboratory monitor shows sinus rhythm so far. We will continue aspirin and statin, per stroke neurology, the patient is not a candidate for the addition of Plavix given the NIH score of 7. Patient continues to have significant left upper extremity weakness and possible mild neglect. PT, OT and speech therapy will evaluate the patient today. Anticipate the patient would benefit from high intensity rehab for post stroke cares. 03/14 Patient had some coughing overnight, chest x-ray this morning was normal. Blood pressure elevated, will begin antihypertensives now that the patient is 48 hours post stroke. Started lisinopril and Norvasc, titrate to effect. Patient also has bilateral pitting edema in his lower extremities, will give a couple doses of Lasix 40 mg IV and follow volume status. Telemetry reviewed, no atrial fibrillation or atrial flutter since admission. Case management working on discharge to high intensity rehab. Physical exam Head: Atraumatic, normal inspection. Eyes: normal appearance, no scleral icterus. Neck: full ROM Respiratory: no respiratory distress. Cardiovascular: normal rate and rhythm, S1, S2. GI/Abdominal: soft, nontender, no guarding. Extremities: Bilateral lower extremity pitting edema, right shoulder incision covered by clean bandage. Neurological: Mild right facial droop, left upper extremity weakness, intact sensation. Psychiatric: normal mood. Skin: warm, normal color Time Spent with Patient Time attestation: Total time spent providing and/or coordinating discharge services: EXAM Constitutional Vitals: Temp Pulse Resp BP Pulse Ox O2 Del Method O2 Flow Rate 97.2 F 82 20 175/115 95 0 03/15/22 12:00 03/15/22 12:00 03/15/22 12:00 03/15/22 12:00 03/15/22 12:00 03/15/22 12:00 03/13/22 12:01 Discharge Data Data Completed and Pending Labs on day of discharge: Labs from last 24 hours 03/15/22 05:50 Sodium 139 Potassium 3.4 Chloride 103 Carbon Dioxide 26 Anion Gap 10.0 BUN 12 Creatinine 0.9 GFR Calculation 93 Glucose 104 Uric Acid 5.5 Calcium 9.2 Phosphorus 3.6 Magnesium 2.1 Total Bilirubin 0.3 Direct Bilirubin < 0.2 GGT 17 AST 26 ALT 20 Alkaline Phosphatase 77 Lactate Dehydrogenase 216 Total Protein 6.4 Albumin 3.7 Globulin 2.7 Albumin/Globulin Ratio 1.4 Triglycerides 128 Discharge Plan Patient/Caregiver Discharge Instructions Prescriptions: No Action hydrocodone-acetaminophen 10-325 mg Tablet 1 - 2 tab PO Q4HP PRN (Reason: Per Pain Protocol) Qty: 60 0RF tamsulosin 0.4 mg capsule 0.4 mg PO QHS Qty: 30 11RF Follow Up Plan Follow up with: Jewell Damon ARNP [Primary Care Provider] -
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
== END 2022-03-15 13:55 | disposition left against medical advice (07) | DRG 91 ==
LOC: ED 11:30 → ICU 18:00
PROVIDERS: ADMIT Internal Medicine; ATTEND Internal Medicine